=== PATIENT | female | born 1990 | race Hispanic/Latino ===

== ENCOUNTER 2025-03-12 09:19 | Day surgery (SDC) | payer OTHER, SELFPAY ==
[2025-03-04 13:08] VITALS: BMI 32.8
[2025-03-12] VITALS (14 sets, daily range): BP systolic 111–126; BP diastolic 70–81; PULSE 74–104; RESP 10–20; TEMP 35.6–36.9; O2SAT 92–100; BMI 32.8; BMI 33.5
--- NOTE | 2025-03-12 | PATH_ITS ---
[facility] Accession Number: [id number] No. of containers..01 Tissue . 01 Material submitted: . uterus - UTERUS, BILATERAL FALLOPIAN TUBES . 01 Diagnosis: UTERUS AND BILATERAL FALLOPIAN TUBES, HYSTERECTOMY AND BILATERAL SALPINGECTOMY: Secretory-type endometrium. Complete cross-section of bilateral fimbriated fallopian tubes with benign paratubal cysts. No endometrioid intraepithelial neoplasia and no malignancy. MRV 03/16/2025 1559 Local . 01 Electronically signed: . Lyubov Iglesias MD, Pathologist NPI- [id number] . 01 Gross description: . Received in formalin with two identifiers and uterus, bilateral fallopian tubes is a fragmented uterus (148 grams, 11.9 x 10.5 x 4.6 cm in aggregate) and two unoriented fallopian tubes (6.4 x 0.9 cm and 5.9 x 1.0 cm). . The serosa is ventura and wrinkled with no adhesion identified. The endometrium is red-brown and lush averaging 0.2 cm thick. The myometrium is ventura and trabecular with no nodules or lesions is identified. . Both tubes have violaceous, smooth serosa with cystic structures up to 0.2 cm in greatest dimension filled with cloudy serous fluid. The lumens are stellate and unremarkable. [employer] sections are submitted as follows: . A1: Endometrium. A2: Myometrium and serosa. A3: Longer fallopian tube. A4: Preston fallopian tube. ([id number]) /MRV 03/13/2025 1144 Local . 01 Pathologist provided ICD-10: Z30.2, N92.1 . 01 CPT . 053385 Specimen Comment: A courtesy copy of this report has been sent to [phone] Performed at: 01 [facility] [address], [place], [place] [id number] MD Rakan Shaver MD Phone: [phone]
[2025-03-12] MEDS: ACETAMINOPHEN IV 1,000 MG/100 ML VIAL 400 MG IV (09:35)
[2025-03-12] MEDS: LACTATED RINGERS 1,000 ML 42 ML IV ×2 (09:35→11:51)
[2025-03-12] MEDS: SCOPOLAMINE 1 PATCH TOP (10:00)
[2025-03-12 10:03] LABS: Hematocrit 38.2 % (36-46); Hemoglobin 12.8 g/dL (12.0-16.0); Mean Corpuscular HGB Conc 33.6 % (30-36); Mean Corpuscular Hemoglobin 28.6 PG (26-34); Mean Corpuscular Volume 85.1 fL (80-100); Platelet Count 279 X10^3/uL (150-400); Red Blood Cell Count 4.49 X10^6/uL (4.0-5.2); Red Cell Distribution Width 12.8 % (11.6-14.8); White Blood Cell Count 5.2 X10^3/uL (4.5-11.0)
--- NOTE | 2025-03-12 10:06 | PM.PREOP ---
Pre-operative Note COVID-19 COVID-19 status: Not tested Interval Note History & Physical reviewed/Exam performed by Physician: Yes Changes to H&P: No
[2025-03-12] MEDS: CEFAZOLIN 2 GM/100 ML PREMIX 100 ML IV (10:20)
--- NOTE | 2025-03-12 10:40 | SUR.OPER ---
Lithotomy on padded OR bed. Sherrard Pad Positioner under torso. Head on pillow, arms padded and tucked at sides. Legs secured in padded yellow fins stirrups.
[2025-03-12] MEDS: BUPIVACAINE 0.5% W/ EPI (PF) 30 ML VIAL INJ (11:00)
[2025-03-12] MEDS: ROPIVACAINE 0.2% PF 2 MG/ML 10ML AMP 20 ML INJ (11:42)
--- NOTE | 2025-03-12 12:09 | P.OP_ITS ---
Operative Date/Time/Diagnoses Date of procedure: 03/12/25 Time of procedure: 10:30 Pre-op diagnosis: Menorrhagia with regular cycle Uterine fibroids Chronic pelvic pain Severe dysmenorrhea Post-op diagnosis: same Procedure & Clinicians Procedure: Procedures Operation Date: 03/12/25 10:45 Actual Procedure Side Surgeon p Laparoscopic Supracervical Hysterectomy with bilateral salpingectomy Joe Sims MD Indications: Gwendolyn is a 33-year-old , LMP 02/11/2025 who presents for evaluation of pro gressively heavy periods associated with severe dysmenorrhea. Patient experienced menarche at age 13 and in her teens was placed on oral contraceptives due to heavy periods which were extremely painful and resulted in her passing out at times and several episodes of missing school. Her periods at that time were irregular and she was also placed on Nexplanon with some significant benefits insofar as severity of her bleeding and pain. Patient experienced 3 spontaneous pregnancies with 2 resulting in successful deliveries by section. Her last delivery was in December 2018. Her had a vasectomy performed after the 2nd section. Her menses following her 2nd delivery remain regular with relatively mild pain with her menses up until the fall of 2021. Her periods became progressively heavier but regular with passage of clots, associated with increased fatigue and extremely painful cramping. Since that time she is also experienced increasing episodes of cramping in between her periods. Patient over the last 6 months has experienced some constipation and a weight gain from 170 lb to 206 lb. [place] patient. The patient states that she had a pelvic ultrasound in December 2022 but no records are available at the time of this visit. According to the patient they saw something on her ovaries but she is not certain what. She was recommended to have a Mirena IUD placed but no other treatment was suggested. Patient also states that she has some headaches with her menses and [place] base that she was borderline anemic. She has been experiencing significant fatigue in association with the headaches with her menses. Her Paps have been abnormal in the past with the patient diagnosed with human papilloma virus in 2013. Her most recent Pap smear in 2020 however was normal and she had previous received HPV vaccine x3 in her late teens/early 20s. Pelvic ultrasound demonstrates multiple uterine fibroids with enlargement of the uterus. Adnexa are unremarkable. Endometrial biopsy was not possible due to cervical stenosis. After consideration of all options, patient requests to proceed with laparoscopic supracervical hysterectomy and she presents today for her scheduled surgery. Surgeon: Joe Sims [employer] Professional: Clotilde Uriarte Anesthesia Type: General Operative Notes Findings: The uterus is enlarged to approximately 8 weeks in size and as myomatous. Fallopian tubes both appeared to be normal. Both ovaries also appeared to be normal. There was no evidence of endometriosis in either the anterior or posterior cul-de-sac. The remainder of the head an and pelvis were normal to laparoscopic inspection. Closure Type: primary Specimen(s): left tube, right tube and uterus (Uterine corpus only) Applied: catheter Estimated blood loss (mL): 50 Blood products transfused: none Procedure in detail: With the patient under satisfactory general anesthesia in the modified dorsal lithotomy position, the vagina, perineum, and abdomen were prepped and draped in the usual manner for laparoscopic supracervical hysterectomy. A pre-surgical safety time-out was then taken in accordance with [facility] OR protocols. A bivalve speculum was inserted vagina, the cervix grasped with a single-tooth tenaculum and dilated with Hegar dilators so as to be able to place a Zumi manipulator within the endometrial cavity. The inferior aspect of the umbilicus was then infiltrated 0.5% Marcaine with epinephrine and a 1 cm transverse incision was made through which a Veress needle was used insufflate the abdominal cavity. Once insufflated a 5 mm trocar and sleeve were then placed through the incision and the presence of the sleeve in the abdomen was confirmed by laparoscopic inspection. Second and 3rd 5 mm ports were then placed in the left and right mid quadrants using a similar technique. Pelvis and abdomen were then inspected using a 3 puncture technique with the findings as noted above. The left fallopian tube was grasped at its distal most portion and fimbria ovarica was coagulated and divided with the PowerSeal bipolar device. The dissection was then carried mesosalpinx to level of the cornua and then the round ligament on the left was coagulated and divided with the PowerSeal. The dissection was then taken down to the level of the endocervix where the ascending uterine vessels were coagulated and divided. Bladder flap was initiated from the left and dissection was carried across the midline to the right side. Attention was then turned to the right side where the distal right tube was grasped with a grasping forceps and the fibria ovarica on the right was coagulated and divided with the PowerSeal. The dissection was then carried across the mesosalpinx to the cornua, downward across the round ligament to the level of the endocervical canal where vessels were coagulated and divided and the bladder flap completed. Bladder was advanced, the Zumi manipulator removed, and a Sandy loop was used to amputate the corpus. Following amputation there was no bleeding encountered. The cervical stump was then coagulated with monopolar current and the endocervical canal was coagulated in a similar manner. A 4 cm transverse suprapubic incision was then made through which a 12 mm trocar and sleeve was introduced into the abdominal cavity. An Endo-Catch was used to capture the uterine corpus and brought up to the suprapubic incision. S retractors were used to expose the fascia which was incised bilaterally so as to expand the fascial incision and once the incision had been expanded, an Wesley retractor was placed in the retrieval bag. Sharp morcellation of the uterine corpus was then carried out and the containment bag and submitted as an aggregate specimen. The Wesley retractor was then removed and closure of the fascial defect was accomplished with 0 Vicryl in a running stitch. The abdomen was then reinsufflated the pelvis thoroughly inspected. There was no points of bleeding identified and the ureters were seen to be peristalsing freely on both sides. 20 cc of ropivacaine was then placed in the pelvis and the pneumoperitoneum was vented. The laparoscopic sleeves were then removed after venting of the pneumoperitoneum and all skin incisions were closed with 4-0 Monocryl using inverted interrupted stitches. Skin glue was then applied followed by placement of appropriate dressings on all incisions. Patient was then awakened from anesthesia and transferred to the PACU for a period of observation and recovery after having tolerated the procedure well. Complications: none Post-operative Condition: stable Disposition: PACU Plan for aftercare: Routine postoperative care.
[2025-03-12] MEDS: ONDANSETRON 4 MG/2 ML INJ IV ×2 (12:51→16:32)
[2025-03-12] MEDS: hydrOXYzine 50 MG/ML INJ 25 MG IM (12:59)
[2025-03-12] MEDS: METOCLOPRAMIDE 10 MG/2 ML INJ IV (13:03)
--- NOTE | 2025-03-12 13:29 | PC.NURSE ---
0734 Patient arrived to unit. Dressings noted to abdomen, clean, dry and intact. Patient lethargic. Able to COURTNEY. Denies numbness and tingling. Previously medicated in PACU. not complaining of pain at this time. Morales noted and draining yellow urine. Call light within reach and bed in lowest position. Family at the bedside.
[2025-03-12] MEDS: LACTATED RINGERS 1,000 ML 100 ML IV ×2 (13:35→23:35)
[2025-03-12] MEDS: ACETAMINOPHEN 325 MG TABLET 650 MG PO ×2 (16:32→21:08)
[2025-03-12] MEDS: KETOROLAC 30 MG/ML VIAL IV (17:30)
[2025-03-12] MEDS: DOCUSATE 100 MG CAPSULE 200 MG PO (21:08)
[2025-03-13] MEDS: KETOROLAC 30 MG/ML VIAL IV ×2 (01:07→06:57)
[2025-03-13 04:46] LABS: Add Manual Diff / Slide Review NO; Basophils Absolute Auto 0 /uL (0-100); Basophils Percent Auto 0.1 % (0-2); Eosinophils Absolute Auto 0 /uL (0-450); Hematocrit 33.4 % (36-46); Hemoglobin 11.3 g/dL (12.0-16.0); Lymphocytes Absolute Auto 1900 /uL (1100-4500); Lymphocytes Percent Auto 15.4 % (25-40); Mean Corpuscular HGB Conc 33.9 % (30-36); Mean Corpuscular Hemoglobin 28.6 PG (26-34); Mean Corpuscular Volume 84.5 fL (80-100); Monocytes Absolute Auto 700 /uL (0-900); Monocytes Percent Auto 5.8 % (3-14); Neutrophils Absolute Auto 9800 /uL (1500-7000); Neutrophils Percent Auto 78.7 % (50-75); Platelet Count 245 X10^3/uL (150-400); Red Blood Cell Count 3.95 X10^6/uL (4.0-5.2); Red Cell Distribution Width 12.9 % (11.6-14.8); White Blood Cell Count 12.4 X10^3/uL (4.5-11.0)
[2025-03-13 06:00] VITALS: BP 116/78; PULSE 88; RESP 16; TEMP 36.6; O2SAT 100
[2025-03-13] MEDS: LACTATED RINGERS 1,000 ML 100 ML IV (06:46)
[2025-03-13] MEDS: ONDANSETRON 4 MG/2 ML INJ IV (06:57)
--- NOTE | 2025-03-13 07:58 | P.DS_ITS ---
History of Present Illness History of Present Illness Date Patient Seen: 03/13/25 Time Patient Seen: 08:00 Chief complaint: Menometrorrhagia, Uterine fibroids Narrative: Gwendolyn is a 33-year-old , LMP 02/11/2025 who presents for evaluation of progressively heavy periods associated with severe dysmenorrhea. Patient experienced menarche at age 13 and in her teens was placed on oral contraceptives due to heavy periods which were extremely painful and resulted in her passing out at times and several episodes of missing school. Her periods at that time were irregular and she was also placed on Nexplanon with some significant benefits insofar as severity of her bleeding and pain. Patient experienced 3 spontaneous pregnancies with 2 resulting in successful deliveries by section. Her last delivery was in December 2018. Her had a vasectomy performed after the 2nd section. Her menses following her 2nd delivery remain regular with relatively mild pain with her menses up until the fall of 2021. Her periods became progressively heavier but regular with passage of clots, associated with increased fatigue and extremely painful cramping. Since that time she is also experienced increasing episodes of cramping in between her periods. Patient over the last 6 months has experienced some constipation and a weight gain from 170 lb to 206 lb. [place] the patient. The patient states that she had a pelvic ultrasound in December 2022 but no records are available at the time of this visit. According to the patient they saw something on her ovaries but she is not certain what. She was recommended to have a Mirena IUD placed but no other treatment was suggested. Patient also states that she has some headaches with her menses and [place] that she was borderline anemic. She has been experiencing significant fatigue in association with the headaches with her menses. Her Paps have been abnormal in the past with the patient diagnosed with human papilloma virus in 2013. Her most recent Pap smear in 2020 however was normal and she had previous received HPV vaccine x3 in her late teens/early 20s. Pelvic ultrasound demonstrates multiple uterine fibroids with enlargement of the uterus. Adnexa are unremarkable. Endometrial biopsy was not possible due to cervical stenosis. After consideration of all options, patient requests to proceed with laparoscopic supracervical hysterectomy and she presents today for her scheduled surgery. Discharge Providers Provider Date of admission: 03/12/2025 Discharge Date: 03/13/25 Primary care physician: Sebastien AHRPER Provider Discharge provider: Joe Sims MD Summary Hospital Course Discharge Diagnosis: Menometrorrhagia Uterine fibroids Status post laparoscopic supracervical hysterectomy with bilateral salpingectomy Hospital Course: On 03/12/2025, Gwendolyn was admitted and underwent an uneventful laparoscopic supracervical hysterectomy with bilateral salpingectomy. Full details of the procedure well summarized on my operative note of that date. Following surgery the patient has done extremely well with prompt return of bowel and bladder function, she is ambulating independently, tolerating regular diet, and her pain is well controlled with oral pain medications. She will be discharged at this time to home in an afebrile normotensive condition after counseling regarding precautionary symptoms, limitations of activity, medications, and plans for follow-up which will be in 2 weeks. Medications at discharge will include oxycodone 5 mg every 4-6 hours as needed for pain, dispense 12 with no refills, and Cipro 500 mg p.o. b.i.d. x5 days for UTI prophylaxis following catheterization. Status at Discharge Cognitive/behavioral status at discharge: oriented Functional status at discharge: independent ambulation Overall status at discharge: patient is progressing back to baseline Time Spent with Patient Time spent: Less than 30 minutes Exam Vital Signs (past 8 hours): - 03/13/25 06:00 Temperature 97.8 F Pulse Rate 88 Respiratory Rate 16 Blood Pressure 116/78 Pulse Oximetry 100 Oxygen Flow Rate 0 Oxygen Delivery Method Room Air Oxygen Flow Rate 0 Const General: cooperative and comfortable Nutritional Appearance: average body habitus Orientation: alert and oriented x3 HENMT Head: normal to inspection, atraumatic and abrasion Ears: hearing grossly normal bilaterally Face and sinus: face symmetric Eyes General: appearance normal, both eyes and all related structures Conjunctivae: conjunctivae normal Sclera: sclerae normal EOM: EOM intact bilaterally Neck Neck: normal visual inspection Resp Effort & Inspection: normal respiratory effort and able to speak in complete sentences Auscultation: clear to auscultation bilaterally Cardio Rate: regular rate Rhythm: regular rhythm Heart Sounds: S1 normal, S2 normal and no murmurs GI Inspection: normal to inspection and incision (Surgical dressings clean and dry) Palpation: soft, no hepatosplenomegaly and tender (Mild, diffuse postsurgical tenderness) External Female Exam: other (No significant bleeding noted) Extrem General: no calf tenderness Psych Appearance: grossly normal Mental Status: mental status grossly normal Speech and Movement: speech and movement normal Mood: congruent mood Affect: normal affect Attitude: cooperative Thought Process: normal Thought Content: normal Judgment: judgment good Objective Labs 03/13/25 04:28 Labs: Laboratory Results - last 24 hr 03/12/25 03/12/25 03/13/25 09:45 10:10 04:28 WBC 5.2 12.4 H D RBC 4.49 3.95 L Hgb 12.8 11.3 L Hct 38.2 33.4 L MCV 85.1 84.5 MCH 28.6 28.6 MCHC 33.6 33.9 RDW 12.8 12.9 Plt Count 279 245 Neut % (Auto) 78.7 H Lymph % (Auto) 15.4 L [place] % (Auto) 5.8 Eos % (Auto) 0.0 L Baso % (Auto) 0.1 Neut # (Auto) 9800 H Lymph # (Auto) 1900 [place] # (Auto) 700 Eos # (Auto) 0 Baso # (Auto) 0 Blood Type B Positive Antibody Screen Negative [facility] Medical History (Updated 03/04/25 @ 13:27 by Tawny Haines RN) Coagulation factor deficiency syndrome Lupus anticoagulant disorder PCOS (polycystic ovarian syndrome) Surgical History (Updated 03/04/25 @ 13:23 by Tawny Haines RN) History of section Social History household members: spouse and children Smoking Status: Never smoker alcohol intake: current Discharge Assessment & Plan Assessment and Plan Assessment: Menometrorrhagia Uterine fibroids Status post laparoscopic supracervical hysterectomy with bilateral salpingectomy Plan of Treatment: Routine postoperative care with follow-up planned for 2 weeks after surgery. Discharge Plan Discharge Plan Patient Disposition: Home Provider Discharge Comment: Please review the written instructions you received when you were discharged from the hospital. Your follow-up appointment is scheduled for 2 weeks after surgery and I look forward to seeing you then. If however in the meanwhile you have any issues, concerns, or questions, please contact me through the office phone at [phone], or via the patient portal. Discharge orders & Medications Discharge Orders: Discharge (Order); Ordered 03/13/25 Ordered By: Joe Sims Prescriptions: New oxycodone 5 mg Tablet 5 mg PO Q4-6H PRN (Reason: Pain, Moderate (4-6)) Qty: 12 0RF ciprofloxacin HCl [Cipro] 500 mg tablet 500 mg PO BID 5 Days Qty: 10 0RF Follow up/Referrals: ProviderSebastien [Primary Care Provider] - Joe Sims MD [Physician] - Diet/Activity/Treatments Diet: Diet as Tolerated Activity: As tolerated Catheter: 2-way Morales Other treatments: [id number] Tylenol and/or ibuprofen may be used as needed for additional pain relief. Nlrx-izs-pzpvdmr stool softeners and/or MiraLax may be used as needed for constipation. Skin/Wound/Dressing Care Report to your healthcare provider any signs of infection, such as:: chills, fever, increased pain, unusual drainage and unusual redness Dressing: Dressing should be removed on the morning of 03/14/2025 Visit Report/Discharge Packet Instructions: DI for Hysterectomy, DI for Laparoscopy, DI for Prescription Opioid Use Stand Alone Forms: Surgery Discharge Print Language: Georgian Discharge Data Primary Care Provider: Sebastien Paredes Attending Provider: Joe Sims Quality VTE Deep Vein Thrombosis/Pulmonary Embolism Present on Admission: No [facility] PROFEE Charge Codes Discharge inpatient/observation: [id number]
[2025-03-13 08:00] VITALS: BP 101/60; PULSE 66; RESP 16; TEMP 36.4; O2SAT 97
[2025-03-13] MEDS: DOCUSATE 100 MG CAPSULE 200 MG PO (09:08)
[2025-03-13] MEDS: ACETAMINOPHEN 325 MG TABLET 650 MG PO (09:09)
--- NOTE | 2025-03-13 10:47 | PC.NURSE ---
D/c instructions reviewed with pt and spouse, including no driving while taking narcotics and how to prevent constipation by taking OTC stool softeners and drinking plenty of fluids. IV removed. Pt exited via w/c with RN and spouse to private vehicle.
== END 2025-03-13 10:50 | disposition home or self-care (01) ==
LOC: OR 09:20 → AC 09:21
PROVIDERS: Anesthesiology; Referring Provider Obstetrics & Gynecology; Visit Provider Obstetrics & Gynecology
PROC: 0UT94ZL Resection of Uterus, Supracervical, Percutaneous Endoscopic Approach (ICD-10-PCS; CPT 58542; principal; 2025-03-12 10:45)
DX: N92.1 Excessive and frequent menstruation with irregular cycle (principal); N83.8 Other noninflammatory disorders of ovary, fallopian tube and broad ligament
CPT/HCPCS: 58542; 36415; 81025; 85025; 85027; 86850; 86900; 86901; J0131; J0690; J1100; J1171; J1885; J2250; J2405; J2704; J2765; J2795; J3010; J3410; J3490